=== PATIENT | male | born 1945 | race Caucasian/White ===

== ENCOUNTER 2018-12-17 12:42 | Outpatient (CLI) | payer MEDICARE, MEDICAID ==
--- NOTE | 2018-12-17 14:05 | MRI ---
MRI of lumbar spine: 12/17/2018 COMPARISON: None HISTORY: Low back pain radiating down bilateral lower extremities TECHNIQUE: The planar multisequence MR imaging of lumbar spine obtained without contrast FINDINGS: STIR imaging demonstrates mild increased signal intensity suggesting osseous marrow edema w ithin bilateral L4 and L5 pedicles, left greater than right. There is mild anterolisthesis at L4-5 and L5-S1 measuring 3 mm. On the basis of 5 lumbar type vertebral bodies, conus medullaris terminates at the T12-L1 level. T12-L1: Mild bilateral facet hypertrophy. There is disc space narrowing and disc desiccation with mil d disc bulge. Mild central canal stenosis. Mild bilateral neural foraminal stenosis. L1-2: There is disc space narrowing and disc desiccation. There is mild disc bulge. Bilateral facet h ypertrophy noted. Moderate left and mild right neural foraminal stenosis. No significant central canal stenosis. L2-3: There is disc space narrowing and disc desiccation with disc osteophyte complex causing mild st enosis. There is significant bilateral facet hypertrophy with mild bilateral neural foraminal stenosis. L3-4: There is disc space narrowing and disc desiccation with disc bulge. Bilateral facet hypertrophy and hypertrophy of the ligamentum flavum noted with mild/moderate central canal stenosis. Mild bilateral neural foraminal stenosis. L4-5: There is disc space narrowing, disc desiccation, and mild disc bulge. There is prominent bilate ral facet hypertrophy and hypertrophy of the ligamentum flavum with severe central canal stenosis and moderate/severe bilateral neural foraminal stenosis, left greater than right. There is a probable synovial cyst in the posterior epidural region measuring 5 mm extending from one of the facet joints, likely the right facet joint. L5-S1: There is disc space narrowing and disc desiccation with mild disc bulge. There is mild central canal stenosis. There is bilateral facet hypertrophy with moderate/severe bilateral neural foraminal stenosis, right greater than left. The imaged retroperitoneal structures demonstrate no acute findings. 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
== END 2018-12-17 12:43 | disposition home or self-care (01) ==
LOC: BICMRI 12:42
PROVIDERS: ATTEND Family Medicine
DX: M54.5 Low back pain (principal); M47.816 Spondylosis without myelopathy or radiculopathy, lumbar region
CPT/HCPCS: 72148

== ENCOUNTER 2021-04-26 13:07 | Outpatient (CLI) | payer MEDICARE, MEDICAID | END 2021-04-26 13:08 | disposition home or self-care (01) | LOC: TBSIIMAG 13:07 | PROVIDERS: ATTEND Specialist | DX: M48.062 Spinal stenosis, lumbar region with neurogenic claudication (principal); N28.9 Disorder of kidney and ureter, unspecified; M47.816 Spondylosis without myelopathy or radiculopathy, lumbar region; M47.817 Spondylosis without myelopathy or radiculopathy, lumbosacral region | CPT/HCPCS: 72148 ==

== ENCOUNTER 2021-06-27 12:43 | Outpatient (CLI) | payer MEDICARE, MEDICAID | END 2021-06-27 12:44 | disposition home or self-care (01) | LOC: BICCT 12:43 | PROVIDERS: ATTEND Neurological Surgery | DX: M48.062 Spinal stenosis, lumbar region with neurogenic claudication (principal); M51.36 Other intervertebral disc degeneration, lumbar region; N28.9 Disorder of kidney and ureter, unspecified; M47.816 Spondylosis without myelopathy or radiculopathy, lumbar region; M43.16 Spondylolisthesis, lumbar region; I70.90 Unspecified atherosclerosis | CPT/HCPCS: 72110; 72131 ==

== ENCOUNTER 2024-12-12 00:28 | Inpatient (IN) | payer OTHER ==
[2024-12-12] MEDS: Ketorolac Tromethamine 30 MG (1 mL) VIAL IVP PRN (03:25)
[2024-12-12] MEDS ORDERED: Calcium Carbonate 500 MG ChewTAB PO PRN (04:13)
[2024-12-12] MEDS ORDERED: Ondansetron PF 4 MG/2 ML Vial IVP PRN (04:13)
[2024-12-12 05:20] LABS: #Basophils 0.06 10x3/uL (0.0-0.2); #Eosinophils 0.03 10x3/uL (0.0-0.7); #Monocytes 1.32 10x3/uL (0.11-0.59); #Neutrophils 17.48 10x3/uL (1.40-6.50); %Basophils 0.3 % (0.0-1.0); %Eosinophils 0.2 % (0.0-10.0); %Lymphocytes 1.9 % (21.0-51.0); %Monocytes 6.7 % (0.0-10.0); %Neutrophils 88.3 % (42.0-75.0); Hematocrit 39.3 % (42.0-52.0); Hemoglobin 13.9 g/dL (14.0-18.0); Mean Corpuscular Hemoglobin 35.5 pg (27.0-31.0); Mean Corpuscular Volume 100.5 fL (78.0-98.0); Platelet Count 127 10x3/uL (130-400); Red Blood Cell (RBC) Count 3.91 mill/uL (4.70-6.10); White Blood Cell (WBC) Count 19.77 10x3/uL (4.8-10.8)
[2024-12-12 05:23] LABS: Anion Gap 13 mmol/L (10-20); BUN (Urea Nitrogen) 19 mg/dL (8.4-25.7); Calc. Creatinine Clearance 0 mL/min (70-130); Carbon Dioxide 23 mmol/L (23-31); Chloride 95 mmol/L (98-107); Potassium 3.6 mmol/L (3.5-5.1); Sodium 127 mmol/L (136-145)
[2024-12-12 05:24] LABS: ALT (SGPT) 27 U/L (Less than 45); AST (SGOT) 38 U/L (11-34); Albumin 2.7 g/dL (3.1-4.5); Alkaline Phosphatase 51 U/L (40-110); Bilirubin, Total 1.9 mg/dL (0.3-1.2); Calcium 9.0 mg/dL (7.8-10.44); Globulin 3.4 g/dL (2.4-3.5); Glucose 127 mg/dL (83-110)
[2024-12-12 05:52] LABS: Macrocytosis SLIGHT = 6-15 cells HPF (0-5); Platelet Adequacy Comment Platelets Decreased
[2024-12-13] MEDS: Acetaminophen/Codeine 30-300mg Tablet PO PRN (01:23)
[2024-12-13 04:15] LABS: Hematocrit 38.7 % (42.0-52.0); Hemoglobin 13.7 g/dL (14.0-18.0); Mean Corpuscular Hemoglobin 34.9 pg (27.0-31.0); Mean Corpuscular Volume 98.7 fL (78.0-98.0); Platelet Count 128 10x3/uL (130-400); Red Blood Cell (RBC) Count 3.92 mill/uL (4.70-6.10); White Blood Cell (WBC) Count 27.63 10x3/uL (4.8-10.8)
[2024-12-13 04:39] LABS: ALT (SGPT) 58 U/L (Less than 45); AST (SGOT) 79 U/L (11-34); Albumin 2.3 g/dL (3.1-4.5); Alkaline Phosphatase 89 U/L (40-110); Anion Gap 12 mmol/L (10-20); BUN (Urea Nitrogen) 20 mg/dL (8.4-25.7); Bilirubin, Total 1.3 mg/dL (0.3-1.2); Calc. Creatinine Clearance 0 mL/min (70-130); Calcium 8.8 mg/dL (7.8-10.44); Carbon Dioxide 24 mmol/L (23-31); Chloride 97 mmol/L (98-107); Globulin 3.5 g/dL (2.4-3.5); Glucose 112 mg/dL (83-110); Potassium 3.5 mmol/L (3.5-5.1); Sodium 129 mmol/L (136-145)
[2024-12-13 05:06] LABS: Anisocytosis SLIGHT = 6-15 cells HPF (0-5); Platelet Adequacy Comment Platelets Decreased; Polychromasia SLIGHT = 2-3 cells HPF (0-2)
[2024-12-13] MEDS ORDERED: PROPOFOL 20 ML ONE (13:42)
[2024-12-13] MEDS ORDERED: Ondansetron PF 4 MG/2 ML Vial ONE (13:50)
[2024-12-13] MEDS ORDERED: fentaNYL PF 100 MCG/2 ML SYRINGE ONE ×2 (14:07→14:17)
[2024-12-13] MEDS: Clindamycin/D5W 900 MG in Premix 1 BAG IVPB SCH (15:58)
[2024-12-13] MEDS: Vancomycin 1.25 GM / NS 250 ML VIAL-2-BAG IVPB SCH (18:28)
[2024-12-14 04:08] LABS: #Basophils 0.07 10x3/uL (0.0-0.2); #Eosinophils Less than 0.03 10x3/uL (0.0-0.7); #Monocytes 1.65 10x3/uL (0.11-0.59); #Neutrophils 23.17 10x3/uL (1.40-6.50); %Basophils 0.3 % (0.0-1.0); %Eosinophils 0.0 % (0.0-10.0); %Lymphocytes 3.0 % (21.0-51.0); %Monocytes 6.3 % (0.0-10.0); %Neutrophils 88.8 % (42.0-75.0); Hematocrit 40.6 % (42.0-52.0); Hemoglobin 14.0 g/dL (14.0-18.0); Mean Corpuscular Hemoglobin 35.2 pg (27.0-31.0); Mean Corpuscular Volume 102.0 fL (78.0-98.0); Platelet Count 134 10x3/uL (130-400); Red Blood Cell (RBC) Count 3.98 mill/uL (4.70-6.10); White Blood Cell (WBC) Count 26.08 10x3/uL (4.8-10.8)
[2024-12-14 04:10] LABS: Anion Gap 13 mmol/L (10-20); BUN (Urea Nitrogen) 25 mg/dL (8.4-25.7); Calc. Creatinine Clearance 92 mL/min (70-130); Calcium 8.7 mg/dL (7.8-10.44); Carbon Dioxide 22 mmol/L (23-31); Chloride 99 mmol/L (98-107); Glucose 115 mg/dL (83-110); Potassium 3.8 mmol/L (3.5-5.1); Sodium 130 mmol/L (136-145)
[2024-12-14 04:16] LABS: Vancomycin, Random 11.5 ug/mL (See Comment)
[2024-12-14 04:23] LABS: CRP,High Sensitivity (Inhouse) 25.63 mg/dL (< or = 0.5)
[2024-12-14] MEDS: Vancomycin 1 GM in Premix 1 BAG IVPB SCH (06:42)
[2024-12-15 07:36] LABS: #Basophils 0.08 10x3/uL (0.0-0.2); #Eosinophils 0.06 10x3/uL (0.0-0.7); #Monocytes 1.57 10x3/uL (0.11-0.59); #Neutrophils 8.67 10x3/uL (1.40-6.50); %Basophils 0.6 % (0.0-1.0); %Eosinophils 0.5 % (0.0-10.0); %Lymphocytes 13.5 % (21.0-51.0); %Monocytes 12.7 % (0.0-10.0); %Neutrophils 70.4 % (42.0-75.0); Hematocrit 39.9 % (42.0-52.0); Hemoglobin 13.6 g/dL (14.0-18.0); Mean Corpuscular Hemoglobin 34.4 pg (27.0-31.0); Mean Corpuscular Volume 101.0 fL (78.0-98.0); Platelet Count 161 10x3/uL (130-400); Red Blood Cell (RBC) Count 3.95 mill/uL (4.70-6.10); White Blood Cell (WBC) Count 12.33 10x3/uL (4.8-10.8)
[2024-12-15 07:49] LABS: Anion Gap 14 mmol/L (10-20); BUN (Urea Nitrogen) 30 mg/dL (8.4-25.7); Calc. Creatinine Clearance 80 mL/min (70-130); Calcium 8.3 mg/dL (7.8-10.44); Carbon Dioxide 23 mmol/L (23-31); Chloride 98 mmol/L (98-107); Glucose 64 mg/dL (83-110); Potassium 3.6 mmol/L (3.5-5.1); Sodium 131 mmol/L (136-145)
[2024-12-15] MEDS: Acetaminophen 325 MG TAB PO PRN (09:09)
[2024-12-15] MEDS: Cephalexin 250 MG CAP PO SCH ×2 (11:01→14:15)
[2024-12-15 14:27] VITALS: BP 120/77; TEMP 97.5
== END 2024-12-15 15:26 | disposition home or self-care (01) | DRG 854 ==
LOC: PCU 01:06
PROVIDERS: ADMIT Student in an Organized Health Care Education/Training Program; ATTEND Internal Medicine
PROC: 3E03329 Introduction of Other Anti-infective into Peripheral Vein, Percutaneous Approach (ICD-10-PCS; 2024-12-12)
PROC: 0JBH0ZZ Excision of Left Lower Arm Subcutaneous Tissue and Fascia, Open Approach (ICD-10-PCS; principal; 2024-12-14)
DX: A41.9 Sepsis, unspecified organism (principal); E87.20 Acidosis, unspecified; L03.114 Cellulitis of left upper limb; L02.416 Cutaneous abscess of left lower limb; R65.20 Severe sepsis without septic shock; N28.1 Cyst of kidney, acquired; F17.210 Nicotine dependence, cigarettes, uncomplicated; M77.12 Lateral epicondylitis, left elbow; Z85.038 Personal history of other malignant neoplasm of large intestine
CPT/HCPCS: 36415; 74183; 80048; 80053; 80202; 82105; 82378; 84550; 85025; 86141; 87070; 87077; 87081; 87205; J0169; J0295; J0665; J1100; J1885; J2405; J2704; J3373; J3490; J7050; J7120

== ENCOUNTER 2025-05-02 19:13 | Emergency (ER) | payer OTHER | END 2025-05-02 20:37 | disposition left against medical advice (07) | LOC: ERS 19:13 | DX: Z53.21 Procedure and treatment not carried out due to patient leaving prior to being seen by health care provider (principal) ==

== ENCOUNTER 2025-05-04 05:29 | Emergency (ER) | payer OTHER ==
[2025-05-04 06:13] LABS: #Basophils Less than 0.03 10x3/uL (0.0-0.2); #Eosinophils Less than 0.03 10x3/uL (0.0-0.7); #Monocytes 0.72 10x3/uL (0.11-0.59); #Neutrophils 10.46 10x3/uL (1.40-6.50); %Basophils 0.2 % (0.0-1.0); %Eosinophils 0.0 % (0.0-10.0); %Lymphocytes 5.6 % (21.0-51.0); %Monocytes 6.0 % (0.0-10.0); %Neutrophils 87.7 % (42.0-75.0); Hematocrit 39.4 % (42.0-52.0); Hemoglobin 13.5 g/dL (14.0-18.0); Mean Corpuscular Hemoglobin 33.6 pg (27.0-31.0); Mean Corpuscular Volume 98.0 fL (78.0-98.0); Platelet Count 292 10x3/uL (130-400); Red Blood Cell (RBC) Count 4.02 mill/uL (4.70-6.10); White Blood Cell (WBC) Count 11.93 10x3/uL (4.8-10.8)
[2025-05-04 06:28] LABS: ALT (SGPT) 21 U/L (Less than 45); AST (SGOT) 34 U/L (11-34); Albumin 3.0 g/dL (3.1-4.5); Alkaline Phosphatase 69 U/L (40-110); Anion Gap 14 mmol/L (10-20); BUN (Urea Nitrogen) 9 mg/dL (8.4-25.7); Bilirubin, Total 0.5 mg/dL (0.3-1.2); Calc. Creatinine Clearance 0 mL/min (70-130); Calcium 8.6 mg/dL (7.8-10.44); Carbon Dioxide 24 mmol/L (23-31); Chloride 94 mmol/L (98-107); Globulin 4.0 g/dL (2.4-3.5); Glucose 148 mg/dL (83-110); Potassium 4.0 mmol/L (3.5-5.1); Sodium 128 mmol/L (136-145)
[2025-05-04] MEDS ORDERED: Ketorolac Tromethamine 30 MG (1 mL) VIAL ONE ×2 (06:35→21:14)
[2025-05-04] MEDS ORDERED: Vancomycin 1.25 GM / NS 250 ML VIAL-2-BAG IVPB SCH (08:15)
== END 2025-05-04 21:26 | disposition short-term general hospital (02) ==
LOC: ERS 05:29
DX: L12.0 Bullous pemphigoid (principal); E87.1 Hypo-osmolality and hyponatremia; F17.210 Nicotine dependence, cigarettes, uncomplicated
CPT/HCPCS: 80053; 83605; 85025; 86141; 87040; 87070; 87205; 96365; 96366; 96367; 96375; 96376; 99285; J1885; J2270; J2543; J2919; J3373; J3490; J7050